=== PATIENT | female | born 1985 | race Caucasian/White ===

== ENCOUNTER 2017-05-21 10:52 | Emergency (ER) | payer OTHER ==
[~2017-05-21] VITALS: Ht 168.9 cm; Wt 77.0 kg
[2017-05-21 11:42] VITALS: BP 122/84
== END 2017-05-21 11:50 | disposition home or self-care (01) ==
LOC: EMS 10:54
DX: O9A.211 Injury, poisoning and certain other consequences of external causes complicating pregnancy, first trimester (principal); M53.3 Sacrococcygeal disorders, not elsewhere classified; Z3A.01 Less than 8 weeks gestation of pregnancy; W01.0XXA Fall on same level from slipping, tripping and stumbling without subsequent striking against object, initial encounter; Y93.01 Activity, walking, marching and hiking; Y92.89 Other specified places as the place of occurrence of the external cause; Y99.8 Other external cause status
CPT/HCPCS: 99281